=== PATIENT | female | born 1995 | race Caucasian/White ===

== ENCOUNTER 2018-05-12 09:55 | Inpatient (IN) | payer BC ==
[~2018-05-12] VITALS: Ht 162.6 cm; Wt 74.6 kg
[2018-05-12 11:01] LABS: HEMATOCRIT 39.2 % (36.0-46.0); HEMOGLOBIN 13.7 G/DL (11.9-15.5); MCH 31.6 PG (29.0-34.0); MCHC 34.9 G/DL (30.0-36.0); MCV 90.5 FL (83-99); PLATELET COUNT 281 K/uL (156-360); RBC DIS.WIDTH-CV 11.5 % (11.8-14.6); RBC DIS.WIDTH-SD 38.4 % (39-53); RED BLOOD COUNT 4.33 M/uL (3.80-5.20); WHITE BLOOD COUNT 10.9 K/uL (4.1-10.2)
[2018-05-12 11:26] LABS: CHLORIDE 105 MEQ/L (99-109); POTASSIUM 4.1 MEQ/L (3.7-5.4); SODIUM 140 MEQ/L (136-147)
[2018-05-12 11:31] LABS: CREATININE 0.7 MG/DL (0.6-1.3); GFR ESTIMATE (CALCULATED) > 59 mL/min/; GLUCOSE 89 mg/dL (70-99); UREA NITROGEN (BUN) 12 mg/dL (9-23)
[2018-05-12 12:00] LABS: QUANTITATIVE HCG < 4.0 MIU/ML
[2018-05-12 15:01] LABS: LYME DISEASE SEROLOGY SCREEN NEGATIVE (NEGATIVE)
[2018-05-12 17:32] VITALS: BP 100/71
[2018-05-12 18:43] LABS: HDL CHOLESTEROL 58 MG/DL (Desirable>=50); LDL CHOLESTEROL 100 mg/dL (Desirable<100); NON-HDL CHOLESTEROL 111 mg/dL (Desirable<160); TOTAL CHOLESTEROL 169 mg/dL (Desirable<200); TRIGLYCERIDES 57 MG/DL (Normal: <150)
[2018-05-12 20:39] VITALS: BP 106/67
[2018-05-13 00:16] VITALS: BP 101/58
[2018-05-13 04:13] VITALS: BP 102/70
[2018-05-13 07:52] LABS: HEMATOCRIT 36.2 % (36.0-46.0); HEMOGLOBIN 12.1 G/DL (11.9-15.5); MCH 30.7 PG (29.0-34.0); MCHC 33.4 G/DL (30.0-36.0); MCV 91.9 FL (83-99); PLATELET COUNT 248 K/uL (156-360); RBC DIS.WIDTH-CV 11.8 % (11.8-14.6); RBC DIS.WIDTH-SD 39.7 % (39-53); RED BLOOD COUNT 3.94 M/uL (3.80-5.20); WHITE BLOOD COUNT 8.8 K/uL (4.1-10.2)
[2018-05-13 07:58] VITALS: BP 108/74
[2018-05-13 08:30] LABS: CHLORIDE 109 MEQ/L (99-109); CREATININE 0.6 MG/DL (0.6-1.3); GFR ESTIMATE (CALCULATED) > 59 mL/min/; GLUCOSE 96 mg/dL (70-99); SODIUM 141 MEQ/L (136-147); UREA NITROGEN (BUN) 12 mg/dL (9-23)
[2018-05-13 11:10] LABS: HEMOGLOBIN A1c (GLYCOHEMOGLOB) 5.3 % (Below 5.7)
[2018-05-14 03:55] LABS: ANTITHROMBIN III ACTIVITY+ 109 % activi (80-120); DRVVT Mixing Study Interp Not Indicated (()); PROTEIN C FUNCTIONAL ACTIVITY+ 91 % (70-180); PTT-LA 34 sec (<=40); dRVVT Screen 46 sec (<=45)
[2018-05-14 11:59] LABS: Protein S, Free 107 % normal (50-147)
== END 2018-05-13 12:59 | disposition home or self-care (01) | DRG 103 ==
LOC: EME 09:55 → EDOF 15:51 → 5SOUTH 15:51 → ENRESERV 15:53 → 5SOUTH 16:58
PROVIDERS: Nurse Practitioner Family; Physician Assistant
DX: G43.809 Other migraine, not intractable, without status migrainosus (principal); E28.2 Polycystic ovarian syndrome; Z82.3 Family history of stroke; D68.51 Activated protein C resistance
CPT/HCPCS: 70450; 70551; 80048; 80061; 81241 90; 83036; 84702; 85027; 85300 90; 85303 90; 85305 90; 85306 90; 85613 90; 85730 90; 86618; 93005; 93880; 99281; 99284; J1650; J1885; J7030